=== PATIENT | male | born 1965 | race Caucasian/White ===

== ENCOUNTER 2017-03-25 16:50 | Emergency (ER) | payer OTHER ==
[~2017-03-25] VITALS: Ht 185.4 cm; Wt 83.5 kg
[~2017-03-25 16:50] MED LIST: NOHOMEMEDS
[2017-03-25 18:29] VITALS: BP 117/87
[2017-03-27 16:28] LABS: TREPONEMA ANTIBODY NEGATIVE (NEGATIVE)
== END 2017-03-25 18:31 ==
LOC: EME 16:50
PROVIDERS: Emergency Medicine
DX: T76.21XA Adult sexual abuse, suspected, initial encounter (principal); X58.XXXA Exposure to other specified factors, initial encounter; Y92.143 Cell of prison as the place of occurrence of the external cause; B19.20 Unspecified viral hepatitis C without hepatic coma
CPT/HCPCS: 86780; 99281; 99283; J0696

== ENCOUNTER 2017-04-03 21:35 | Emergency (ER) | payer OTHER ==
[~2017-04-03] VITALS: Ht 185.4 cm; Wt 84.4 kg
[2017-04-03] MEDS ORDERED: NASACORT10.8 ML BOTH NARES (21:56)
[2017-04-03] MEDS ORDERED: PRILOSEC20 MG PO (21:57)
[2017-04-03] MEDS ORDERED: LEVOTHYROXINE100 MCG PO (21:57)
[2017-04-04 00:32] VITALS: BP 112/88
== END 2017-04-04 00:32 ==
LOC: EME → EDBD 21:35 → EME 04-04 00:32
DX: T76.21XA Adult sexual abuse, suspected, initial encounter (principal); S05.12XA Contusion of eyeball and orbital tissues, left eye, initial encounter; S50.11XA Contusion of right forearm, initial encounter; S40.812A Abrasion of left upper arm, initial encounter; R07.81 Pleurodynia; R10.9 Unspecified abdominal pain; R11.0 Nausea; Y04.0XXA Assault by unarmed brawl or fight, initial encounter; Y92.149 Unspecified place in prison as the place of occurrence of the external cause; E03.9 Hypothyroidism, unspecified; Z87.891 Personal history of nicotine dependence
CPT/HCPCS: 70450; 70486; 71101; 99281; 99284